=== PATIENT | female | born 1945 ===

== ENCOUNTER 2016-05-25 13:00 | Emergency (ER) | payer MEDICARE, OTHER ==
[2016-05-25 13:19] VITALS: RESP 18; O2SAT 100; BMI 26.4
[2016-05-25] MEDS ORDERED: Naproxen 550 mg Tab PO STA (13:26)
--- NOTE | 2016-05-25 14:52 | RAD ---
PROCEDURE: Left Wrist Radiographs. HISTORY: fall COMPARISON: None. FINDINGS: BONES: There is a minimally displaced transverse fracture through the base of the 5th metacarpal JOINTS: Normal. No dislocation. SOFT TISSUES: Normal. OTHER FINDINGS: None. IMPRESSION: There is a minimally displaced transverse fracture through the base of the 5th metacarpal
--- NOTE | 2016-05-25 14:53 | RAD ---
PROCEDURE: Left Hand Radiographs. HISTORY: fall COMPARISON: None. FINDINGS: BONES: Minimally displaced transverse fracture through the base of the 5th metacarpal JOINTS: Degenerative changes in the DIP and PIP joints and base of the thumb SOFT TISSUES: Normal. OTHER FINDINGS: None. IMPRESSION: Osteoarthritis. Transverse fracture base of 5th metacarpal
--- NOTE | 2016-05-25 15:12 | ED PDOC ---
Arrival/HPI - General Chief Complaint: Trauma Time Seen by Provider: 05/25/16 13:20 Historian: Patient - History of Present Illness Narrative History of Present Illness (Text): 05/25/16 13:20 A 70 year old female presents to the emergency department complaining of left hand/wrist pain after a mechanical fall. Patient reports 2 hours ago she was walking outside when she tripped and fell over an uneven side walk. She denies any head trauma, other injuries or any other complaints at this time. PMD: Dr. Lyles Time/Duration: 1-3 hours Symptom Onset: Sudden Symptom Course: Unchanged Quality: Other Activities at Onset: Light Context: Walking, Street Past Medical History - Provider Review Nursing Documentation Reviewed: Yes - Infectious Disease Hx of Infectious Diseases: None - Tetanus Immunization Tetanus Immunization: Unknown - Reproductive Menopause: Yes - Cardiac Hx Hypertension: Yes - Endocrine/Metabolic Hx Diabetes Mellitus Type 2: Yes - Musculoskeletal/Rheumatological Hx Arthritis: Yes - Psychiatric Hx Depression: No Hx Emotional Abuse: No Hx Physical Abuse: No Hx Substance Use: No - Surgical History Hx Cholecystectomy: Yes Hx Hysterectomy: Yes Hx Tonsillectomy: Yes - Anesthesia Hx Anesthesia: Yes Hx Anesthesia Reactions: No - Suicidal Assessment Feels Threatened In Home Enviroment: No Family/Social History - Physician Review Nursing Documentation Reviewed: Yes Family/Social History: Unknown Family HX Smoking Status: Never Smoked Hx Alcohol Use: No Hx Substance Use: No Hx Substance Use Treatment: No Allergies/Home Meds Allergies/Adverse Reactions: Allergies iodine Allergy (Verified 05/25/16 13:20) SWELLING Iodine and Iodide Containing Produc Allergy (Verified 05/25/16 13:20) SWELLING Home Medications: Home Meds Medication Instructions Recorded Confirmed Alprazolam [Xanax] 0.5 mg PO BID 11/27/14 11/27/14 Meclizine [Antivert] 12.5 mg PO DAILY 11/27/14 11/27/14 Metformin Hydrochloride/Feli 500 mg PO BID 11/27/14 11/27/14 [Janumet 500 mg-50 mg] Metoprolol Succinate [Toprol XL] 12.5 mg PO DAILY 11/27/14 11/27/14 Montelukast Sodium [Singulair] 10 mg PO DAILY 11/27/14 11/27/14 Pantoprazole [Protonix] 40 mg PO DAILY 11/27/14 11/27/14 Pravastatin Sodium 80 mg PO DAILY 11/27/14 11/27/14 Ramipril 2.5 mg PO DAILY 11/27/14 11/27/14 Review of Systems - Physician Review All systems were reviewed & negative as marked: Yes - Review of Systems Constitutional: absent: Other (head truma; or other injuries) Cardiovascular: absent: Syncope Musculoskeletal: Other (left hand/wrist pain) Physical Exam Vital Signs Reviewed: Yes Vital Signs Temp Pulse Resp BP Pulse Ox 05/25/16 15:00 98.1 F 79 18 148/89 100 05/25/16 13:18 98.4 F 89 18 151/91 H 100 05/25/16 13:12 98.5 F 62 16 147/49 L 99 Temperature: Afebrile Blood Pressure: Hypotensive Pulse: Regular Respiratory Rate: Normal Appearance: Positive for: Well-Appearing, Non-Toxic, Comfortable Pain Distress: None Mental Status: Positive for: Alert and Oriented X 3 - Systems Exam Head: Present: Atraumatic, Normocephalic Pupils: Present: PERRL Extroacular Muscles: Present: EOMI Conjunctiva: Present: Normal Mouth: Present: Moist Mucous Membranes Neck: Present: Normal Range of Motion Respiratory/Chest: Present: Clear to Auscultation, Good Air Exchange. No: Respiratory Distress, Accessory Muscle Use Cardiovascular: Present: Regular Rate and Rhythm, Normal S1, S2. No: Murmurs Abdomen: Present: Normal Bowel Sounds. No: Tenderness, Distention, Peritoneal Signs Back: Present: Normal Inspection Upper Extremity: Present: Normal ROM, NORMAL PULSES, Tenderness (to the lateral hand), Swelling (to the lateral hand), Neurovascularly Intact. No: Cyanosis, Edema, Temperature Abnormalties Lower Extremity: Present: Normal Inspection. No: Edema Neurological: Present: GCS=15, CN II-XII Intact, Speech Normal Skin: Present: Warm, Dry, Normal Color. No: Rashes Psychiatric: Present: Alert, Oriented x 3, Normal Insight, Normal Concentration Medical Decision Making ED Course and Treatment: 05/25/16 13:20 Impression: A 70 year old female with left hand/wrist pain after a mechanical fall. Differential Diagnosis include but are not limited to: fracture vs. sprain Plan: -- Left Hand X-ray -- Left Wrist X-ray -- Naproxen -- Reassess and disposition Prior Visits: Notes and results from previous visits were reviewed. The patient last presented to the emergency department on 11/27/14 for evaluation of dizziness. Progress Notes: 05/25/16 14:50 Left Wrist X-ray: Creator : Kai Hoffman MD COMPARISON: None. FINDINGS: BONES: There is a minimally displaced transverse fracture through the base of the 5th metacarpal JOINTS: Normal. No dislocation. SOFT TISSUES: Normal. OTHER FINDINGS: None. IMPRESSION: There is a minimally displaced transverse fracture through the base of the 5th metacarpal Left Hand X-ray: Creator : Kai Hoffman MD COMPARISON: None. FINDINGS: BONES: Minimally displaced transverse fracture through the base of the 5th metacarpal JOINTS: Degenerative changes in the DIP and PIP joints and base of the thumb SOFT TISSUES: Normal. OTHER FINDINGS: None. IMPRESSION: Osteoarthritis. Transverse fracture base of 5th metacarpal Patient placed in a ulnar gutter splint. 05/25/16 15:55 On re-evaluation, the patient feels better and is in no acute distress. I have discussed the results and plan with the patient, who expresses understanding. Patient in agreement with plan to discharged home. Patient is stable for discharge. Patient was instructed to follow up with physician/clinic in 1-2 days or return if symptoms worsen or new concerning symptoms arise. 05/25/16 18:50 pt neurovasc intact. given outpt f/u - RAD Interpretation Radiology Orders: 05/25/16 13:26 HAND LEFT 3 VIEWS ROUTINE [RAD] Stat WRIST, LEFT 3 VIEWS [RAD] Stat - Medication Orders Current Medication Orders: Discontinued Medications Naproxen (Anaprox Ds) 550 mg PO STAT STA Stop: 05/25/16 13:27 Last Admin: 05/25/16 13:46 Dose: 550 MG - Scribe Statement The provider has reviewed the documentation as recorded by the Destinyibhamzah Workman Provider Scribe Attestation: All medical record entries made by the Scribe were at my direction and personally dictated by me. I have reviewed the chart and agree that the record accurately reflects my personal performance of the history, physical exam, medical decision making, and the department course for this patient. I have also personally directed, reviewed, and agree with the discharge instructions and disposition. Disposition/Present on Arrival - Present on Arrival Any Indicators Present on Arrival: No History of DVT/PE: No History of Uncontrolled Diabetes: No Urinary Catheter: No History of Decub. Ulcer: No History Surgical Site Infection Following: None - Disposition Have Diagnosis and Disposition been Completed?: Yes Diagnosis: Metacarpal bone fracture Disposition: HOME/ ROUTINE Disposition Time: 15:55 Condition: STABLE Discharge Instructions (ExitCare): Finger Fracture (ED) Additional Instructions: please see specialist. return to er with worsening symptoms or concerns. Prescriptions: Naproxen 500 mg PO BID PRN #14 tab PRN Reason: Pain, Mild (1-3) Referrals: Eh Nath III, MD [Medical Doctor] - Follow up with primary Sushil Lyles MD [Primary Care Provider] - Follow up with primary Reyes Hart MD [Staff Provider] - Follow up with primary
[2016-05-25 15:36] VITALS: BP 148/89; PULSE 79; TEMP 98.1
== END 2016-05-25 15:15 | disposition home or self-care (01) ==
LOC: ED 13:00
DX: S62.317A Displaced fracture of base of fifth metacarpal bone, left hand, initial encounter for closed fracture (principal); W01.0XXA Fall on same level from slipping, tripping and stumbling without subsequent striking against object, initial encounter; Y93.01 Activity, walking, marching and hiking; Y92.480 Sidewalk as the place of occurrence of the external cause

== ENCOUNTER 2018-05-17 08:00 | Outpatient (CLI) | payer MEDICARE, OTHER | END 2018-05-17 08:01 | disposition home or self-care (01) | LOC: RAD 08:00 | DX: K76.0 Fatty (change of) liver, not elsewhere classified (principal) ==

== ENCOUNTER 2018-07-08 11:38 | Outpatient (CLI) | payer MEDICARE, OTHER | END 2018-07-08 11:39 | disposition home or self-care (01) | LOC: RAD 11:38 ==